=== PATIENT | female | born 1985 | race Caucasian/White ===

== ENCOUNTER → 2016-11-20 | Outpatient (CLI) | payer OTHER ==
[~2016-11-20] VITALS: Ht 160 cm; Wt 53.3 kg
[~2016-11-20] MED LIST: FLEXERIL PO; MEDROLDOSEPACK PO; NORCO 5-325 TA1 EACH PO
--- NOTE | ~2016-11-20 | HPC ---
[facility] [place] [address] [address] PAIN MANAGEMENT CONSULTATION Name: MENDEL CANNON Room #: REG [facility].#: [id number] Admission: 11/20/16 Attend Phys: Justin Arguello DO Discharge: Date of : 85 Report #: [id number] THIS REPORT FOR: //name// CC: Justin Montenegro MD DATE OF SERVICE: 11/20/2016 REFERRING PHYSICIAN: Marcelino Montenegro MD CHIEF COMPLAINT: Left upper back pain, left flank pain. HISTORY OF PRESENT ILLNESS: As you know, the patient is a very pleasant 31-year-old female who has had a longstanding history of left upper back pain and left flank pain. She places current pain score at around 7/10. She indicates pain began somewhere in August 2016, she denies any specific injury or trauma. She is undergoing formalized physical therapy program, also chiropractic manipulation for nearly 2-1/2 months. Despite the attempts at improving symptoms, she has not noted much in the way of improvement. She was seen by her primary care physician recently who believe that the patient may be suffering from thoracic radiculopathy and was referred to our clinic. The patient indicates today pain is continuous and constant, describes pain as pulling, sharp, stabbing and tender, places current pain score somewhere between 0-7/10 depending on activity, worst pain has been is 10/10. The patient indicates that exercise exacerbate symptoms, nothing much has improved pain except for possibly her narcotic medications as she is receiving for p.r.n. control. She has been referred to our service to discuss source of left upper back and left flank pain. PAST MEDICAL HISTORY: None. PAST SURGICAL HISTORY: 1. section in 2011. 2. Rhinoplasty in 2008. SOCIAL HISTORY: The patient denies tobacco, alcohol, IV or illicit drug use. 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 She has been out of work force for nearly 5 years. She is not receiving workman's compensation nor is she trying to obtain disability benefits. She is unaccompanied at today's visit. REVIEW OF SYSTEMS: Positive for headaches, wearing corrective eyewear, nocturia, mid back pain, and left flank pain. All other review of systems negative per 12-point review of systems other than those listed in history of present illness. [address] [address] PAIN MANAGEMENT CONSULTATION Name: MENDEL CANNON ABDOUL Room #: REG CL[facility] Gamez#: [id number] Admission: 11/20/16 Attend Phys: Justin Arguello DO Discharge: Date of : 85 Report #: [id number] PAIN IMPACT SCORE: 37/70 indicating moderate interference of daily activities secondary to pain. ALLERGIES: No known drug allergies. CURRENT MEDICATIONS: Hydrocodone 5/325 one tab every 8 hours p.r.n. for pain and nabumetone 500 mg 3 times a day. IMAGING: MRI thoracic spine obtained on 10/25/2016, shows in the left aspect of the T8 vertebral body, there is a 5-mm hyperintense T2 vertebral lesion, which would indicate hemangioma, no acute marrow edema thoracic cord is normal size and signal throughout. There is noted a liver lesion, they have discussed possible recommendations in a previous chest MRI. The liver lesion appears to be cystic information. There are no abnormalities in the thoracic spine other than listed above. PHYSICAL EXAMINATION: VITAL SIGNS: Blood pressure 124/91, pulse 84, respiratory rate 18 and unlabored, the patient is 99% on room air, height 5 feet 3 inches tall, weight 117.4 pounds, and BMI calculated 20.8. GENERAL: Well-developed, well-nourished, well-hydrated, fit 31-year-old female, appearing her stated age, placing current pain score at approximately 7/10. HEENT: Normocephalic, atraumatic. Pupils are equal, round, and reactive to light. Extraocular muscles are intact. Sclerae nonicteric without injection. NEUROLOGIC: Cranial nerves 2-12 grossly intact. Speech is fluent. The patient deemed an excellent historian. LUNGS: Clear. No wheeze, rhonchi or rales. CARDIOVASCULAR: Regular. No appreciable gallop or rub. ABDOMEN: Soft, nontender, nondistended, normoactive bowel sounds. EXTREMITIES: Show no clubbing, no cyanosis, and no edema. MUSCULOSKELETAL: There is no thoracic radicular symptoms noted in physical exam today. I am unable to elicit any thoracic issues other than some myofascial symptoms directly over the rhomboids on the left. Deep palpation in the area causes some intensification of pain. There is also noted some tenderness along the serratus anterior musculature on the left when compared to the right. There is noted also a small scoliotic curvature of the thoracic spine. Upper extremity strength and lower extremity strength equal and symmetrical 5/5. There is palpatory tenderness over the false ribs on the left when compared to the right. Upper extremity strength equal and symmetrical with normal reflexes in the biceps, brachioradialis, triceps, again at the patella and Achilles. She is intact to light touch from C5 through T1 dermatomes, again from T1 through T12 dermatomes and L1 through S2 dermatomes. ASSESSMENT: 1. Costochondritis. 2. Myofascial pain. [address] [place] [address] PAIN MANAGEMENT CONSULTATION Name: MENDEL CANNON [facility] [id number] Admission: 11/20/16 Attend Phys: Justin Arguello DO Discharge: Date of : 85 Report #: [id number] 3. Chronic intractable pain. PLAN: 1. The patient has been referred to our service for concern of a thoracic radiculopathy, I am pleased to advise the patient today there is no finding in her thoracic spine except for hemangioma T8, which is causing no issues. There is no marrow edema, no involvement of nerve roots or cord. There is some finding of a small liver cyst, which appears to be unchanged from previous imaging studies. It appears that the symptoms the patient is experiencing over the scapular area relate more to the rhomboids and more of myofascial symptom. There is no radicular component to the patient's symptoms. As for the left flank pain, this appears to be costochondritis affecting the false rib area on the left, negative right. She does have palpatory tenderness over the area. We discussed treatment options for costochondritis, specifically involving the false ribs and the articulation of the costosternal junctions with the patient today, the following was discussed. We discussed physical therapy, stretching exercises, core strengthening, we discussed medication management with addition of an oral steroid, which has been shown quite effective for costochondritis; we also discussed decreasing specific activities that she does on a daily basis that exacerbates the symptoms, these are specific workout routine that she is involved in of late. We discussed also injection therapies to address her ongoing symptoms. After discussion, she chose to decrease the physical activity that she is doing that is exacerbating symptoms and initiate oral treatment. 2. The patient was provided a prescription of Medrol Dosepak, she was given 2 Medrol Dosepaks to take 6 tablets for 2 days, 5 tablets for 2 days, 4 tablets for 2 days, 3 tablets for 2 days, 2 tablets for 2 days, 1 tablet for 2 days, then off the medication entirely. We were utilizing the Medrol Dosepak to provide good and prolonged steroidal activity to decrease the costochondritic problem the patient is experiencing on the left side. This in conjunction with decreasing specific activities during workouts should improve the patient's costochondritis completely. 3. I have provided the patient with Zipsor samples, she can utilize this medication twice a day, 25 mg dose, if these are effective treatments, she can utilize this medication long-term and receive this through her PCP. 4. We will see the patient back in followup visit in 2 weeks. At that time, we will review the efficacy of the changes in therapy provided today. Again, I am pleased to indicate to the patient today she is not suffering from any thoracic radicular symptoms, the findings on physical exam correlate most closely with costochondritis and exacerbations of the chondrotic junctions at the sternocostal junction, the false ribs on the left side and the articulations of the ribs at the transverse process of the thoracic region. 5. We wish to thank Dr. Montenegro for the referral of this patient to our clinic. We will keep you apprised of her response to treatment as we address [address] [address] PAIN MANAGEMENT CONSULTATION Name: MENDEL CANNON Room #: REG [facility] M.R.#: [id number] Admission: 11/20/16 Attend Phys: Justin Arguello DO Discharge: Date of : 85 Report #: [id number] her ongoing symptoms. Again, we wish to thank you for the opportunity to participate in her care. By: [id number] 20 Justin Arguello DO /nt
[2016-11-20 09:11] VITALS: BP 124/91
[2016-11-20 09:12] VITALS: BP 124/91
== END | disposition home or self-care (01) ==
LOC: PAIN 07:07
DX: M94.0 Chondrocostal junction syndrome [Tietze] (principal); M79.1 Myalgia; G89.29 Other chronic pain; Z79.899 Other long term (current) drug therapy; Z98.890 Other specified postprocedural states

== ENCOUNTER → 2016-12-03 | Outpatient (CLI) | payer OTHER ==
[~2016-12-03] VITALS: Ht 160 cm; Wt 53.5 kg
[~2016-12-03] MED LIST changes: +IBUPROFEN 800800 M1 PO
--- NOTE | ~2016-12-03 | HPC ---
[facility] [address] [place] [address] PAIN MANAGEMENT CONSULTATION Name: MENDEL CANNON [facility] [id number] Admission: 12/03/16 Attend Phys: Justin Arguello DO Discharge: Date of : 85 Report #: [id number] THIS REPORT FOR: //name// CC: Justin Montenegro MD DATE OF SERVICE: 12/03/2016 CHIEF COMPLAINT: Left upper back pain and left flank pain. HISTORY OF PRESENT ILLNESS: As you know, the patient is a very pleasant 31-year-old female who was seen in consultation per the request of Dr. Montenegro for concern of thoracic radiculopathy. We have been able to rule this out as a source of the patient's symptoms. It appears the patient is suffering from costochondritis. We have tried the patient on conservative treatment. She returns today with improvement in symptoms, but continues to experience left false rib pain and sternocostal pain. She returns to discuss the possibility of injection therapy in hopes of improving pain and also to discuss other options for treatment. She denies new injury, new trauma. She has backed off on most of her exercise program per our request to allow herself to heal. ALLERGIES: NO KNOWN DRUG ALLERGIES. CURRENT MEDICATIONS: Hydrocodone, nabumetone. SOCIAL HISTORY: The patient denies tobacco, alcohol, IV or illicit drug use. 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 She has been out of work force for nearly 5 years, unaccompanied today. IMAGING: No new imaging available. PHYSICAL EXAMINATION: VITAL SIGNS: Blood pressure 121/83, pulse 66, respiratory rate 14, unlabored. The patient is 100% on room air, height 5 feet 3 inches tall, weight 118 pounds, BMI calculated at 20.9. GENERAL: Well-developed, well-nourished, well-hydrated 31-year-old female. She appears stated age. Pain is rated around 5/10. HEENT: Normocephalic, atraumatic. Pupils equal, round and reactive to light. EXTREMITIES: Show no clubbing, no cyanosis, no edema. MUSCULOSKELETAL: Palpatory tenderness is noted over the false ribs angle on the left when compared to right. The rib angle is very tender to palpation. There is no overlying erythema or changes in skin color or texture. There is also tenderness along the sternocostal junction. ASSESSMENT: [address] [address] PAIN MANAGEMENT CONSULTATION Name: MENDEL CANNON [facility]: [facility]Bet[facility] [id number] Admission: 12/03/16 Attend Phys: Justin Arguello DO Discharge: Date of : 85 Report #: [id number] 1. Costochondritis. 2. Myofascial pain. 3. Chronic intractable pain. PLAN: 1. The patient returns today in followup visit having noted improvement in symptoms with the medications provided at last visit. Unfortunately, she continues to experience pain upon the left rib angle and costosternal joint. It appears the patient is suffering from continued costochondritis. I believe she has irritated the chest wall with exercise routines. 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 There is no radicular component to the patient's symptoms and no radicular patterns of distribution. We have discussed with the patient the options for treatment. She chose to undergo trigger point injections of the left rib angle in hopes of improving pain. She has been advised risks and benefits of this procedure. These risks include, but are not necessarily limited to bleeding, bruising, infection, worsening pain, no relief of pain, also risk of temporary or permanent muscle weakness, temporary or permanent nerve damage, possible pneumothorax and . The patient states understood and wished to proceed. 2. The patient was provided a referral to [facility]. She will begin evaluation and treatment and stretching exercises for her left chest wall pain. This should help the patient significantly in improving her stretching and relieving some of the chest wall pain. We have sent the patient for this evaluation. We have also discussed with the patient other options of treatment, though physical therapy at this time would be most effective. 3. We did discuss the possibility of having the patient seek evaluation for acupuncture therapy. There has been good literature indicating efficacy with acupuncture and chest wall symptoms. This might be an opportunity to use a nontraditional treatment option in hopes of improving pain further. She will consider this option. We did provide the patient with names of acupuncture therapists that might be able to help her with her ongoing symptoms. If she wishes to look into this, she can do this at her own convenience. 4. We made no changes in the patient's medical therapy. She will continue current treatment. 5. We will see the patient back in followup visit after she has completed her physical therapy. PROCEDURE NOTE DESCRIPTION OF PROCEDURE: Trigger point injections. After obtaining written consent, the patient was placed in a lying position. The area overlying the left rib angle was palpated. We noted 3 different trigger points that radiated the patient's typical radiating pain pattern. We [address] [address] PAIN MANAGEMENT CONSULTATION Name: MENDEL CANNON Room #: REG CL Rebecca#: [id number] Admission: 12/03/16 Attend Phys: Justin Arguello DO Discharge: Date of : 85 Report #: [id number] then marked the areas with a marker, then sterilely cleaned the area with chlorhexidine. A 27 gauge 1-1/4 inch needle was used to advance towards each of the trigger points. The needle was advanced until typical radiating pain pattern was reproduced. After negative aspiration for heme, 2 mL of a solution containing 1 mL 40 mg per mL 40 mg total triamcinolone and 5 mL of bupivacaine 0.5% injected. This was done in a fanned out distribution to cover the trigger point in areas surrounding. The patient tolerated the procedure well, carefully sat up in the room. It was noted the patient was breathing normally. Sterile bandages were placed over each injection site. Auscultation of the lungs showed normal aeration. After meeting our discharge criteria, the patient discharged home. <ELECTRONICALLY SIGNED> By: Justin Arguello DO 12/11/16 [id number] Justin Arguello DO /nt
[2016-12-03 08:08] VITALS: BP 121/83
== END | disposition home or self-care (01) ==
LOC: PAIN 07:05
DX: M79.1 Myalgia (principal); M94.0 Chondrocostal junction syndrome [Tietze]; G89.29 Other chronic pain; Z88.8 Allergy status to other drugs, medicaments and biological substances

== ENCOUNTER → 2016-12-11 | Outpatient (CLI) | payer OTHER ==
[~2016-12-11] VITALS: Ht 160 cm; Wt 52.7 kg
--- NOTE | ~2016-12-11 | HPC ---
[facility] [address] [place] [address] PAIN MANAGEMENT CONSULTATION Name: KASSANDRAMENDELJonh SCHREIBER Room #: REG [facility].#: [id number] Admission: 12/11/16 Attend Phys: Justin Arguello DO Discharge: Date of : 85 Report #: [id number] THIS REPORT FOR: //name// CC: Justin Montenegro DATE OF SERVICE: 12/11/2016 CHIEF COMPLAINT: Right chest wall pain. HISTORY OF PRESENT ILLNESS: As you know, the patient is a very pleasant 31-year-old female who returns today in followup visit indicating an 85% improvement in overall pain and left chest wall pain with the trigger point injections provided for costochondritis. She is now experiencing increasing right chest wall pain that is more mild than the left, but has been now more noticeable now that the left costochondritis has been controlled. She returns today requesting trigger point injections over the right chest wall to address the costochondritis that is present at a lesser degree on this right side. She denies injury or trauma that may have led to symptom development. She has noted good benefit with the injections from prior visit. ALLERGIES: No known drug allergies. CURRENT MEDICATIONS: Hydrocodone, nabumetone. SOCIAL HISTORY: The patient denies tobacco, alcohol, IV or illicit drug use. 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 She has been out of work force for nearly 5 years. She is unaccompanied today. IMAGING: No imaging available. PHYSICAL EXAMINATION: VITAL SIGNS: Blood pressure 114/72, pulse 65, respiratory rate 16 and unlabored. The patient is 100% on room air. Height 5 feet 3 inches tall, weight 116.2 pounds, BMI calculated 20.6. GENERAL: Well-developed, well-nourished, well-hydrated 31-year-old female appearing her stated age. She is placing pain score today at approximately 5/10. HEENT: Normocephalic, atraumatic. Pupils equal, round, reactive to light. Extraocular muscles are intact. EXTREMITIES: Show no clubbing, no cyanosis, no edema. MUSCULOSKELETAL: There is palpatory tenderness over the costochondral junctions on the right when compared to the left, appears to be associated with the 10th, 9th and 8th rib specifically. There is deep palpation over the area that causes intensification of symptoms, deep breathing also intensifies pain. [facility] [address] [place] [address] PAIN MANAGEMENT CONSULTATION Name: KANCHANNANDINIMihirMENDEL [facility] #: [facility] [id number] Admission: 12/11/16 Attend Phys: Justin Arguello DO Discharge: Date of : 85 Report #: [id number] ASSESSMENT: 1. Costochondritis. 2. Myofascial pain. 3. Chronic intractable pain. PLAN: 1. The patient returns today in followup visit having received about 85% improvement in overall symptoms from the trigger point injections on the left chest wall last week. She returns today in followup visit requesting to undergo a similar procedure on the right side to effect the 10th, 9th and 8th costochondral junctions in hopes of improving the similar findings on the right side. The patient denies injury or trauma to the area. I have consented the patient to undergo the procedure. I advised the patient of the risks, these include bleeding, bruising, infection, worsening pain, no relief of pain, also risk of temporary or permanent muscle weakness, temporary or permanent nerve damage, possible pneumothorax. The patient states she understood and wished to proceed. 2. No medication changes were made at today's visit. The patient to continue current medical therapy as previously prescribed. 3. The patient to return to our clinic on an as needed basis for possible repeat trigger point injections PROCEDURE NOTE DESCRIPTION OF PROCEDURE: Right trigger point injections. After obtaining written consent, the patient was placed in a lying position. The patient was prepped and draped in aseptic fashion using chlorhexidine. A sterile marker was used to indicate the 3 points of tenderness. These were located on the costochondral junction at the right 10th rib, 9th rib and 8th rib. The areas were then anesthetized with 1 mL of 1% lidocaine. A 27-gauge, 1-1/4 inch needle was used to advance towards each of the trigger points till the patient's typical radiating pain pattern was reproduced. After negative aspiration for heme, 2 mL of a solution containing 1 mL 40 mg per mL 40 mg total triamcinolone and 5 mL of bupivacaine 0.5% was distributed in a fanned out technique. Needle was removed. Sterile bandage was placed over each injection site. The patient tolerated the procedure well, carefully escorted to the recovery room in stable condition. No apparent complications. After meeting discharge criteria, the patient discharged home. By: [id number] Justin Arguello DO /jozef
[2016-12-11 08:24] VITALS: BP 114/72
== END | disposition home or self-care (01) ==
LOC: PAIN 06:53
DX: M79.1 Myalgia (principal); G89.29 Other chronic pain; Z88.6 Allergy status to analgesic agent